=== PATIENT | female | born 1935 ===

== ENCOUNTER 2017-09-25 14:56 | Outpatient (CLI) | payer OTHER ==
[~2017-09-25 14:56] MED LIST: AVAPRO150 MG PO; FOSAMAX70 MG PO
== END 2017-09-25 15:15 | disposition home or self-care (01) ==
LOC: MAMO-SONO 14:56
DX: Z12.31 Encounter for screening mammogram for malignant neoplasm of breast (principal); Z87.898 Personal history of other specified conditions; N60.11 Diffuse cystic mastopathy of right breast; N60.12 Diffuse cystic mastopathy of left breast